=== PATIENT | male | born 1975 | race Caucasian/White ===

== ENCOUNTER 2019-10-12 00:19 | Emergency (ER) | payer MEDICAID ==
[~2019-10-12] VITALS: Ht 177.8 cm; Wt 86.2 kg
--- NOTE | 2019-10-12 00:34 | NUR ---
ED Nurse Note: Pt. walked into the ER from home c/o hematuria and dysuria and increased frequency from 11pm. AOx4 and denies fever. Present no acute distress. Vital sign is stable and stead gait. Per pt, no PHX. Pt is collecting urine.
--- NOTE | 2019-10-12 00:41 | NUR ---
ED Nurse Note: Pain level is 5/10. Pt stated he took ibuprofen at 11pm and pain level has decreased.
[2019-10-12 00:43] VITALS: BP 121/81
--- NOTE | 2019-10-12 00:53 | Emergency Room Report ---
History of Present Illness General Chief Complaint: Male Urogenital Problems Source: Patient Present Illness [facility] This a 44-year-old male with no past medical history. He presents with chief complaint of dysuria, frequency and hematuria. Onset tonight. He said when he ejaculated noticed some blood. Since then is having some slight discharge. He also has some urinary frequency and urgency. Similar symptom few months ago in [place] when he was diagnosed with an STD. He received Rocephin and azithromycin and symptoms resolved. He is sexually active and has unprotected sex. Last sexual intercourse was 2 weeks ago. Allergies: Coded Allergies: No Known Allergies (Unverified , 10/12/19) COVID-19 Screening Contact w/high risk pt: No Recent Travel to affected area: No Experienced COVID-19 symptoms?: No COVID-19 Testing performed [employer]: No Patient History Past Medical History: see triage record, old chart reviewed Past Surgical History: none Pertinent Family History: none Social History: Denies: smoking Immunizations: other Reviewed Nursing Documentation: PMH: Agreed; PSxH: Agreed Nursing Documentation-PMH Past Medical History: No Stated History Review of Systems Eye: Denies: eye pain, blurred vision ENT: Denies: ear pain, nose congestion, throat swelling Respiratory: Denies: cough, shortness of breath Cardiovascular: Denies: chest pain, palpitations Gastrointestinal: Denies: abdominal pain, diarrhea, nausea, vomiting Genitourinary: Reports: discharge, dysuria, frequency Musculoskeletal: Denies: back pain, joint pain Skin: Denies: rash Neurological: Denies: headache, numbness Endocrine: Denies: increased thirst, increased urine Hematologic/Lymphatic: Denies: easy bruising All Other Systems: negative except mentioned in HPI Physical Exam Vital Signs Date Time Temp Pulse Resp B/P (MAP) Pulse Ox O2 Delivery O2 Flow Rate FiO2 10/12/19 00:25 97.5 75 20 121/81 (94) 97 Room Air Vitals normal Sp02 EP Interpretation: reviewed, normal General Appearance: well appearing, no apparent distress, alert Head: normocephalic, atraumatic Eyes: bilateral eye PERRL, bilateral eye EOMI ENT: hearing grossly normal, normal pharynx Neck: full range of motion, supple, no meningismus Respiratory: chest non-tender, lungs clear, normal breath sounds Cardiovascular #1: regular rate, rhythm, no murmur Gastrointestinal: normal bowel sounds, non tender, no mass, no organomegaly, no bruit, non-distended Genitourinary: other - Patient is circumcised. No discharge. No testicular pain. Musculoskeletal: back normal, normal range of motion, gait/station normal Psychiatric: mood/affect normal Medical Decision Making Diagnostic Impression: Primary Impression: Urethritis Last Vital Signs Date Time Temp Pulse Resp B/P (MAP) Pulse Ox O2 Delivery O2 Flow Rate FiO2 10/12/19 00:43 97.5 20 121/81 97 Room Air 10/12/19 00:25 75 Status: improved Disposition: HOME, SELF-CARE Condition: Stable Patient Instructions: Urethritis, Adult Additional Instructions: Wear condoms with sexual activity. Have your partners treated also. Recommend outpatient testing for HIV, hepatitis, syphilis and other STDs. Return if symptoms worsen. Follow-up with your doctor in a week as needed. Oliver Dickson MD October 12, 2019 00:53
[2019-10-12 00:59] LABS: APPEARANCE,URINE CLEAR; BILIRUBIN, URINE NEGATIVE (NEGATIVE); COLOR,URINE PALE YELLOW; GLUCOSE, URINE (UA) NEGATIVE (NEGATIVE); KETONES,URINE NEGATIVE (NEGATIVE); LEUKOCYTE ESTERASE ,URINE NEGATIVE (NEGATIVE); NITRITE,URINE NEGATIVE (NEGATIVE); PH,URINE 6 (4.5-8.0); PROTEIN,URINE NEGATIVE (NEGATIVE); UROBILINOGEN,URINE NORMAL MG/DL (0.0-1.0)
[2019-10-12] MEDS ORDERED: Azithromycin 250mg tab ORAL ONE (01:00)
[2019-10-12] MEDS ORDERED: Lidocaine 1% MPF 10mg/ml 5ml INJ ONE (01:00)
[2019-10-12 01:28] VITALS: BP 109/69
--- NOTE | 2019-10-12 01:29 | NUR ---
ED Nurse Note: Pt is madicated and pain level decreased to 2/10. Vital sign is stable.
[2019-10-12 01:33] VITALS: BP 109/69
--- NOTE | 2019-10-12 01:33 | NUR ---
ER DISCHARGE NOTE: Patient is cleared to be discharged per ERMD, pt is aox4, on room air, with stable vital signs. No abx adverse effect noted. pt was given dc instructions, pt was able to verbalize understanding, pt id band removed without complications. pt is able to ambulate with steady gait. pt took all belongings.
== END 2019-10-12 01:33 | disposition home or self-care (01) ==
LOC: EMR 00:50
DX: N34.2 Other urethritis (principal)
CPT/HCPCS: 81003; 96372; 96374; J0696; Q0144; Z7502; 99284